=== PATIENT | female | born 2000 | race Caucasian/White ===

== ENCOUNTER 2022-06-10 12:51 | Emergency (ER) | payer BC, SELFPAY ==
[2022-06-10 13:03] VITALS: BP 110/72; PULSE 69; RESP 17; TEMP 36.9; O2SAT 100
--- NOTE | 2022-06-10 13:36 | ED.URI ---
HPI - URI/Sore Throat General Chief Complaint: Upper Respiratory Infection Stated Complaint: Cough,Congestion,Lt Eye Irritation Time Seen by Provider: 06/10/22 13:29 Source: patient and RN notes reviewed Mode of arrival: ambulatory Limitations: no limitations History of Present Illness HPI Narrative: Patient presents today complaining of a 3 week history of cough, nasal congestion with left eye redness and yellow drainage since last night. Denies vision changes or photophobia. Denies fever, body aches, shortness of breath. 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 She has been taking Tylenol and ibuprofen with mild relief. Denies history of asthma, but does report intermittent seasonal allergies. She does not currently take anything for her allergies. She is a nonsmoker. Related Data Home Medications Medication Instructions Recorded Confirmed spironolactone 100 mg tablet 100 mg PO DAILY 12/06/21 06/10/22 levonorgestrel 20.4 mcg/24 hrs (8 See Rx Instructions .Route .COMPLEX 06/10/22 06/10/22 yrs) 52 mg intrauterine device (Liletta) Allergies Allergy/AdvReac Type Severity Reaction Status Date / Time cefdinir [From Omnicef] AdvReac Severe Swelling Verified 06/10/22 13:02 of Lip/Tongue/Throat moxifloxacin [From Vigamox] AdvReac Severe Swelling Verified 06/10/22 13:02 of Lip/Tongue/Throat latex AdvReac Mild Rash Verified 06/10/22 13:09 Review of Systems Review of Systems: CONSTITUTIONAL: Denies body aches, fever, chills, or sweats. EYES: Denies visual changes. + left eye redness and drainage ENT: Denies rhinorrhea, sore throat, or otalgia.+ congestion CARDIOVASCULAR: Denies chest pain, palpitations, or edema. RESPIRATORY: Denies dyspnea.+ cough GASTROINTESTINAL: Denies abdominal pain, nausea, vomiting, or diarrhea. GENITOURINARY: Denies dysuria or hematuria. SKIN: Denies rash, itching, or wounds. MUSCULOSKELETAL: Denies back pain, joint pain, or myalgia. NEUROLOGIC: Denies headache, numbness, tingling, or weakness. PSYCH: Denies depression or anxiety. 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 Surgical History Surgical History History of gynecological procedure (~09/2020) Lyletta IUD insertion done in [place] History of orthopedic surgery (~2003) fractured C2 Family History Family History Grandparent Acute myocardial infarction paternal and maternal grandfathers Father Depression Sibling Depression sister brother Mother Diabetes mellitus Social History Social History Smoking status: Never smoker Alcohol intake: never Substance use: never Substance use type: does not use Living arrangements: other Additional living arrangements comments: single Occupation/Education: occupation 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 Please see nursing chart for further information. There is no relevant family history pertinent to the presenting complaint Exam Narrative: GENERAL: Well-appearing, well-nourished, and in no acute distress. HEAD: Normocephalic, atraumatic. EYES: EOMI. PERRL. Right eye normal. Left eye with injected conjunctiva, chemosis. No active drainage noted. Lids and lashes normal. ENT: Mucous membranes pink and moist. Nares congested. TMs normal bilaterally. Throat normal. Uvula midline. NECK: Normal AROM. Supple. No lymphadenopathy. [facility]
== END 2022-06-10 13:47 | disposition home or self-care (01) ==
PROVIDERS: Emergency Provider Nurse Practitioner
DX: J01.90 Acute sinusitis, unspecified (principal); H10.32 Unspecified acute conjunctivitis, left eye
CPT/HCPCS: 99213; G0463

== ENCOUNTER 2023-01-13 14:06 | Emergency (ER) | payer BC, SELFPAY ==
[2023-01-13 14:15] VITALS: BP 106/66; PULSE 85; RESP 18; TEMP 36.2; O2SAT 100
--- NOTE | 2023-01-13 14:40 | ED.URI ---
HPI - URI/Sore Throat General Chief Complaint: Upper Respiratory Infection Stated Complaint: Lt Ear Irritation,Cough,Sore Throat,Congestion Source: patient and RN notes reviewed History of Present Illness HPI Narrative: 22 yo F presents to urgent care with complaints of sore throat, congestion, runny nose, and nausea x 2 weeks. Pt states these symptoms are getting worse and she now has left ear pain. Pt denies any fevers, chills, chest pain, or SOB. Pt states she vomited 4x in 1 day within the last 2 weeks. Pt denies any diarrhea or abdominal pain. Pt has been taking Dayquil and Nyquil at home. Related Data Home Medications Medication Instructions Recorded Confirmed spironolactone 100 mg tablet 100 mg PO DAILY 12/06/21 01/13/23 propranolol 10 mg tablet 10 mg PO DIRECTED 01/13/23 01/13/23 Allergies Allergy/AdvReac Type Severity Reaction Status Date / Time cefdinir [From Omnicef] AdvReac Severe Swelling Verified 01/13/23 14:35 of Lip/Tongue/Throat moxifloxacin [From Vigamox] AdvReac Severe Swelling Verified 01/13/23 14:35 of Lip/Tongue/Throat latex AdvReac Mild Rash Verified 01/13/23 14:35 Review of Systems Review of Systems: Pertinent positives and pertinent negatives per HPI. 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 Surgical History Surgical History History of gynecological procedure (~09/2020) Lyletta IUD insertion done in [place] History of orthopedic surgery (~2003) fractured C2 Family History Family History Grandparent Acute myocardial infarction paternal and maternal grandfathers Father Depression Sibling Depression sister brother Mother Diabetes mellitus Social History Social History Smoking status: Never smoker Alcohol intake: never Substance use: never Substance use type: does not use Living arrangements: other Additional living arrangements comments: single Occupation/Education: occupation 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 There is no relevant family history pertinent to the patient complaint. Exam Narrative: GENERAL: This is a well-nourished, well-developed patient, in no apparent distress. HEAD: normocephalic, atraumatic. EYES: Sclera clear/white. Vision is grossly intact. EARS: External ears normal, auditory canals clear and without drainage, right TM normal without perforation. Hearing grossly intact. The left TM is noted to be erythemic and bulging NOSE: External nose normal with no obvious nasal discharge, nares without redness, no rhinorrhea. Positive congestion. THROAT: Mucous membranes moist, posterior pharynx clear. NECK: Neck supple, non-tender without lymphadenopathy, masses or thyromegaly. CARDIOVASCULAR: Regular rate and rhythm without murmurs, gallops, or rubs. RESPIRATORY: Clear to auscultation. Breath sounds equal bilaterally. No wheezes, rales, or rhonchi. GASTROINTESTINAL: Abdomen soft, non-tender, nondistended. Bowel sounds are active. No hepato-splenomegaly, or palpable masses. No guarding. SKIN: warm, intact with no suspicious lesions or rash, good texture and turgor. NEURO: awake, alert, and oriented to person, place and time. There were no obvious focal neurologic abnormalities. Course Course Level of Care: Express Care Visit Vital Signs Vital signs: Vital Signs Temperature 97.1 F L 01/13/23 14:15 Pulse Rate 85 01/13/23
== END 2023-01-13 14:45 | disposition home or self-care (01) ==
PROVIDERS: Emergency Provider Nurse Practitioner Family
DX: H66.92 Otitis media, unspecified, left ear (principal); J32.9 Chronic sinusitis, unspecified
CPT/HCPCS: 99213; G0463

== ENCOUNTER 2024-12-17 11:18 | Emergency (ER) | payer OTHER, SELFPAY ==
--- NOTE | ~2024-12-17 | XR_ITS ---
EXAMINATION: XR abdomen/kub 1V, 12/17/2024 11:33 CDT HISTORY: Right low back pain, hx of kidney stone COMPARISON: No comparisons available. Technique: 3 view. Findings: Moderate fecal content, no dilated bowel loops. No free air. No abnormal calcifications No acute osseous abnormality. IUD overlies the pelvis Impression: 1. No acute abnormality. Reviewed, dictated and finalized at location P. Impression: 1. No acute abnormality.
[2024-12-17 11:26] VITALS: BP 116/77; PULSE 107; RESP 18; TEMP 36.7; O2SAT 100
[2024-12-17 11:45] LABS: EDUAAPPEAR Clear; EDUABILI Negative (Negative); EDUABLOOD Negative (Negative); EDUACOLOR1 Yellow; EDUAGLUCOSE Negative (Negative); EDUAKETONE Negative (Negative); EDUALEUKO Trace (Negative); EDUANITRATE Negative (Negative); EDUAPH 7.0; EDUAPROTEIN 2+ (Negative); EDUASPGRAVITY 1.020; EDUAUROBILI 0.2
--- NOTE | 2024-12-17 11:47 | ED_ITS ---
HPI - Female Genitourinary General Chief complaint: Back Pain/Injury Stated complaint: Back Pain Time Seen by Provider: 12/17/24 11:19 Source: patient Mode of arrival: ambulatory Limitations: no limitations History of Present Illness HPI Narrative: Patient is a 24-year-old female that presents with right low back pain for 5 days. States it is getting worse and occasionally wraps around to the front. Denies any trauma or back injury. Reports her urine is cloudy but denies any foul odor, urgency or frequency. States she has had a UTI in the past and kidney stones. Does report nausea but no vomiting and no fevers or chills. Denies any blood in urine. Had normal bowel movement this morning. Denies concern for STI. IUD in place MD elicited complaint: dysuria Related Data Home Medications ?Medication ?Instructions ?Recorded ?Confirmed ?Last Taken ?Type spironolactone 100 mg tablet 100 mg PO DAILY 12/06/21 12/17/24 Unknown History propranolol 10 mg tablet 10 mg PO DIRECTED 3 12/17/24 Unknown History fremanezumab-vfrm 225 mg/1.5 mL mg subcut 12/17/24 Un known History subcutaneous auto-injector (Ajovy) Allergies Allergy/AdvReac Type Severity Reaction Status Date / Time latex Allergy Mild Rash Verified 12/17/24 11:19 cefdinir (From Omnicef) AdvReac Severe Swelling Verified 12/17/24 11:19 of Lip/Tongue/Throat moxifloxacin (From Vigamox) AdvReac Severe Swelling Verified 12/17/24 11:19 of Lip/Tongue/Throat Review of Systems Review of Systems: All systems reviewed & are unremarkable except as noted in HPI and below Constitutional: Constitutional: Denies chills, Denies fever(s), Denies headache(s), Denies malaise and Denies weakness Eyes: Eyes: Denies change in vision, Denies eye discharge and Denies irritation ENT: Denies otalgia, Denies headache(s), Denies nasal congestion, Denies nasal discharge, Denies sinus pain and Denies sore throat Cardiovascular: Cardiovascular: Denies chest pain, Denies edema, Denies palpitations and Denies dyspnea Respiratory: Respiratory: Denies cough and Denies dyspnea Gastrointestinal: Gastrointestinal: Denies abdominal pain, Denies diarrhea, Denies nausea and Denies vomiting Genitourinary: Genitourinary: Denies hematuria, Denies nocturia, Reports dysuria, Reports flank pain and Denies urinary urgency Musculoskeletal: Musculoskeletal: Denies back pain and Denies numbness Integumentary/Breasts: Skin/Breast: Denies pruritus and Denies rash Neurologic: Denies headache(s), Denies numbness and Denies weakness Psychiatric: Psychiatric: Reports no additional psychiatric complaints Endocrine: Endocrine: Denies palpitations PMFSH Past Medical History Medical History 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 Surgical History Surgical History History of orthopedic surgery (~2003) fractured C2 History of gynecological procedure (~09/2020) Lyletta IUD insertion done in [place] Family History Family History Grandparent Acute myocardial infarction paternal and maternal grandfathers Father Depression Sibling Depression sister brother Mother Diabetes mellitus Social History Social History Smoking status: Never smoker Alcohol intake: never Substance use: never Substance use type: does not use Living arrangements: other Additional living arrangements comments: single Occupation/Education: occupation 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 There is no relevant family history pertinent to the presenting complaint. Exam Const: General: cooperative, healthy appearing, comfortable, no acute distress and well nourished Nutritional Appearance: well nourished Orientation/consciousness: patient oriented x3 HENMT: Head: normocephalic and atraumatic Ears: external ears normal Face/Nose/Sinus: Normal external nose present, Normal nares present and normal facial exam Face and sinus: normal facial exam Eyes: General: appearance normal, both eyes and all related structures Pupils: Equal, round and reactive pupils present EOM: EOMs intact bilaterally Neck: Neck: normal visual inspection, full ROM and supple Chest: Chest palpation & inspection: normal inspection of the chest Resp: Effort & Inspection: normal respiratory effort and able to speak in complete sentences Cardio: Rate: tachycardic Rhythm: regular rhythm GI: Inspection: normal to inspection GI Palp: No abdominal tenderness and Yes Soft to palpation : General: Yes no CVA tenderness Back/Spine/Pelvis: Back: CVA tenderness (right) Skin: General skin exam: normal color and no rashes or lesions noted Neuro: General: patient oriented x3 and moves all extremities Cranial nerves: Yes Equal, round and reactive pupils present Extrem: General: normal to inspection and full ROM Psych: Appearance: grossly normal and well kempt Course Course Emergency Course: Patient is aware of diagnosis, understands and agrees to treatment plan. Anticipatory guidance given. Patient agrees to follow-up as directed and is aware of reasons to seek care at the emergency department. Portions of this record may have been created with voice recognition software Level of Care: Express Care Visit Vital Signs Vital signs: Vital Signs Temperature 36.7 C 12/17/24 11:26 Pulse Rate 107 H 12/17/24 11:26 Respiratory Rate 18 12/17/24 11:26 Blood Pressure 116/77 12/17/24 11:26 Pulse Oximetry 100 12/17/24 11:26 Oxygen Delivery Room Air 12/17/24 11:26 Temperature 36.7 C 12/17/24 11:26 Pulse Rate 107 H 12/17/24 11:26 Respiratory Rate 18 12/17/24 11:26 Blood Pressure 116/77 12/17/24 11:26 Pulse Oximetry 100 12/17/24 11:26 Oxygen Delivery Room Air 12/17/24 11:26 Reviewed MDM - Female Genitourinary MDM Narrative Medical decision making narrative: Exam findings and UA show probable pyelonephritis as there is protein in urine, low back pain and nausea present. Will prescribed Bactrim and Flomax in case there is a stone not visible on KUB. Patient does have history of kidney stone. Patient is to stop taking spironolactone for duration of antibiotics. Patient has allergies to both other oral antibiotics to cover pyelonephritis.; patient is non-toxic appearing and is in no distress. +CVA tenderness Patient is appropriate for outpatient treatment and follow-up. Differential Diagnosis Differential diagnosis: Likely urinary tract infection, bacterial vaginosis, trichomoniasis, cervicitis, vaginitis, cystitis and other (Pyelonephritis) Medical Records Attestation: I reviewed the patient's medical records. Lab Data Attestation: I reviewed the patient's lab results. Labs: Lab Results 12/17/24 Range/Units 11:41 POC Urine Color Yellow POC Urine Clarity Clear POC Urine pH 7.0 POC Ur Specif [place] 1.020 POC Urine Protein 2+ (Negative) POC Ur Glucose (UA) Negative (Negative) POC Urine Ketones Negative (Negative) POC Urine Blood Negative (Negative) POC Urine Nitrite Negative (Negative) POC Urine Bilirubin Negative (Negative) POC Urine Urobilinogen 0.2 POC U Leukocyte Esteras Trace (Negative) Imaging Data Radiologist's impression: EXAMINATION: XR abdomen/kub 1V, 12/17/2024 11:33 CDT HISTORY: Right low back pain, hx of kidney stone COMPARISON: No comparisons available. Technique: 3 view. Findings: Moderate fecal content, no dilated bowel loops. No free air. No abnormal calcifications No acute osseous abnormality. IUD overlies the pelvis Impression: 1. No acute abnormality. Reviewed, dictated and finalized at location P. Discharge Plan Discharge Clinical Impression: Pyelonephritis, History of kidney stones Patient Disposition: Home Condition: Stable Instructions: Kidney Infection (ED) Additional Instructions: Stop taking spironolactone for duration of antibiotic. There is concern for pyelonephritis which is not covered by most typical UTI medications. Give allergies to the other to oral antibiotics. The KUB showed no signs of kidney stone but will prescribe Flomax as a precaution. We will send a urine culture to the lab, based on your symptoms and urine dip we will start treatment today. If culture comes back and bacteria is not susceptible to antibiotic, your prescription may change. Your symptoms should improve within a day of starting antibiotics, but you should finish all the antibiotic pills you get. Otherwise your infection might come back Continue with increased water intake. Take Tylenol or ibuprofen as needed for pain or fever. Follow-up with primary care provider for urine recheck or see ER visit if condition worsens with high fever, nausea, vomiting, severe back pain Patient Language: Upper Sorbian Prescriptions: New sulfamethoxazole-trimethoprim 800-160 mg tablet 1 tablet PO Q12H 10 Days Qty: 20 0RF tamsulosin 0.4 mg capsule 0.4 mg PO DAILY Qty: 7 0RF No Action propranolol 10 mg tablet 10 mg PO DIRECTED fluticasone propionate [24 Hour Allergy Relief] 50 mcg/actuation spray,suspe nsion 1 spray intranasal BID Qty: 16 0RF Rx Instructions: administer into each nostril Ajovy Autoinjector 225 mg/1.5 mL auto-injector SUBCUT spironolactone 100 mg tablet 100 mg PO DAILY Follow-up/Referrals: Vic Mercado MD [Physician, Family Practice] - 3 Days Stand Alone Forms: Work/School Release IP Time of Disposition: 12:14
--- OUTSIDE RECORDS SUMMARY | 2024-12-17 13:27 | XMS_ITS | Clinical Summary ---
Author Organization [facility] Address [address] [address] Care Team Providers Care Literature Teacher Name Role Phone Yasmin Reed DO Primary Care Provider [phone] Source Comments [facility],non-owned Affiliates and Associated Physician Practices is amultiple site organization consisting of ambulatory clinics and hospital sitesin [place], [place], [place] and [place]. This disclosure is being madepursuant to the Care Everywhere program and may not contain all information available regarding this patient. Last updated 17.[facility] Allergies Active Allergy Reactions Criticality Noted Date Comments Cefdinir Other,Swelling 03/22/2014 Moxifloxacin Other,Swelling,Unknown 03/22/2014 Soy Allergy Other 07/16/2020 Medications * Be aware that medications may not be up to date on this document. Alwaysverify current medications with the patient. spironolactone (ALDACTONE) 50 MG tablet Take 50 mg by mouth 05/20/2020 Active meloxicam (MOBIC) 15 MG tablet Take 1 tablet by mouth once daily 09/16/2020 Active Social History Tobacco Use Types Packs/Day Years Used Date Smoking Tobacco: Never Assessed PHQ-2 Answer Date Recorded PHQ2 TOTAL SCORE 0 08/27/2020 Comments No Sex and Gender Information Value Date Recorded Sex Assigned at Female 08/27/2020 12:00 PM CDT Legal Sex Female 10:14 AM CDT Gender Identity Female 08/27/2020 12:00 PM CDT Sexual Orientation Straight 08/27/2020 12 :00 PM CDT Last Filed Vital Signs Vital Sign Reading Time Taken Comments Blood Pressure 104/72 11/26/2020 9:31 AM CDT Pulse 85 11/26/2020 9:31 AM CDT Temperature 36.7 C (98 F) 11/26/2020 9:31 AM CDT Respiratory Rate 16 11/26/2020 9:31 AM CDT Oxygen Saturation 98% 11/26/2020 9:31 AM CDT Inhaled Oxygen Concentration - - Weight 63.5 kg (140 lb) 11/26/2020 9:31 AM CDT Height 168.9 cm (5' 6.5) 11/26/2020 9:31 AM CDT Body Mass Index 22.26 11/26/2020 9:31 AM CDT Plan of Treatment Health Maintenance Due Date Last Done Comments HIV SCREENING 2016 HPV VACCINE (1 - 3-dose series) 2016 MENINGOCOCCAL (Group B) VACCINE SHARED DECISION-MAKING (1 of 2 - Standard) 2017 HEPATITIS C SCREENING 11/17/2019 DTAP/TDAP/TD VACCINES (1 - Tdap) 2020 HEPATITIS B VACCINE (1 of 3 - 19+ 3-dose series) 2020 CHLAMYDIA/GONORRHEA SCREENING 07/15/2021 07/15/2020 DEPRESSION SCREENING 02/21/2024 COVID-19 VACCINE (3 - 2024-2 6 season) 2024 07/09/2020, 06/18/2020 INFLUENZA VACCINE (#1) 2024 9, 03/14/2017, 11/29/2013 ZOSTER VACCINE (1 of 2) 11/22/2051 HIB VACCINE Aged Out No longer eligi ble based on patient's age to complete this topic MENINGOCOCCAL GROUPS A/C/Y/W VACCINE Aged Out No longer eligible b ased on patient's age to complete this topic PNEUMOCOCCAL VACCINE Aged Out No long er eligible based on patient's age to complete this topic Insurance [employer]ARON Care Teams Literature Teacher Relationship Specialty Start Date End Date Yasmin Reed DO PCP - General Family Medicine 11/26/20
== END 2024-12-17 12:18 | disposition home or self-care (01) ==
PROVIDERS: Emergency Provider Nurse Practitioner Family
DX: N12 Tubulo-interstitial nephritis, not specified as acute or chronic (principal); Z87.442 Personal history of urinary calculi; S39.012A Strain of muscle, fascia and tendon of lower back, initial encounter; X58.XXXA Exposure to other specified factors, initial encounter; Z97.5 Presence of (intrauterine) contraceptive device
CPT/HCPCS: 74018; 81003; 87086; 87147; 87186; 99213; G0463